=== PATIENT | female | born 1955 | race Caucasian/White ===

== ENCOUNTER 2017-10-10 10:44 | Outpatient (CLI) | payer OTHER ==
[~2017-10-10 10:44] MED LIST: CALC-1051 PO; CLI0.05P TD; DIAZ5DIS4 IV; GABA100C PO; HYDR-565 PO; HYDR40TA PO; MELA3TAB PO; OMEP40CA37 PO; TRAM50TA2 PO; TRYP500C PO
== END 2017-10-10 23:59 | disposition home or self-care (01) ==
LOC: 64 CT 10:44
PROVIDERS: ATTEND Orthopaedic Surgery Orthopaedic Surgery of the Spine
DX: M47.812 Spondylosis without myelopathy or radiculopathy, cervical region (principal); M50.30 Other cervical disc degeneration, unspecified cervical region; M48.02 Spinal stenosis, cervical region
CPT/HCPCS: 72125

== ENCOUNTER → 2017-10-25 | Outpatient (CLI) | payer BC, OTHER ==
[2017-10-25 10:41] LABS: BASOPHILS % (AUTO) 0.6 % (0-1); EOSINOPHILS # (AUTO) 0.2 X10'3 (0-0.9); EOSINOPHILS % (AUTO) 3.7 % (0-6); HEMATOCRIT 40.2 % (35.0-45.0); HEMOGLOBIN 13.6 g/dl (12.0-16.0); LYMPHOCYTES # (AUTO) 3.3 X10'3 (1.1-4.8); LYMPHOCYTES % (AUTO) 49.5 % (21-51); MEAN CORPUSCULAR HEMOGLOBIN 31.5 PG (27.0-31.0); MEAN CORPUSCULAR HGB CONC 33.7 % (33.0-36.5); MEAN CORPUSCULAR VOLUME 93.4 FL (78-98); MEAN PLATELET VOLUME 7.4 FL (7.4-10.4); MONOCYTES # (AUTO) 0.5 X10'3 (0-0.9); MONOCYTES % (AUTO) 8.2 % (2-12); NEUTROPHILS # (AUTO) 2.5 X10'3 (1.8-7.7); PLATELET COUNT 379 X10'3 (140-440); RED BLOOD COUNT 4.31 X10'6 (4.20-5.60); RED CELL DISTRIBUTION WIDTH 14.1 % (11.5-14.5); WHITE BLOOD COUNT 6.6 X10'3 (4.5-11.0)
[2017-10-25 10:48] LABS: ALANINE AMINOTRANSFERASE 28 U/L (12-78); ALBUMIN/GLOBULIN RATIO 1.3 (1.1-1.5); ALKALINE PHOSPHATASE 43 IU/L (46-116); ANION GAP 9 (8-16); ASPARTATE AMINO TRANSFERASE 22 U/L (10-37); BILIRUBIN,TOTAL 0.2 MG/DL (0.1-1.0); BLOOD UREA NITROGEN 13 MG/DL (7-18); BUN/CREATININE RATIO 17.1 (6.6-38.0); CALCIUM 8.6 MG/DL (8.5-10.1); CHLORIDE 98 MMOL/L (99-107); CHOL/HDL RATIO 1.5 (0.00-4.99); CHOLESTEROL 134 MG/DL (0-200); CREATININE 0.76 MG/DL (0.40-0.90); GLUCOSE 83 MG/DL (70-104); HDL CHOLESTEROL 90 MG/DL (35-60); LDL CHOLESTEROL 34 MG/DL (50-100); POTASSIUM 4.2 MMOL/L (3.5-5.1); SODIUM 136 MMOL/L (135-145); TOTAL CARBON DIOXIDE 28.9 MMOL/L (24-32); TOTAL PROTEIN 7.1 G/DL (6.4-8.2); TRIGLYCERIDES 41 MG/DL (20-135); eGFR 77 ML/MIN
== END ==
LOC: LAB 09:24
DX: Z00.01 Encounter for general adult medical examination with abnormal findings (principal); R79.89 Other specified abnormal findings of blood chemistry
CPT/HCPCS: 36415; 80053; 80061; 85025

== ENCOUNTER 2017-11-08 09:30 | Inpatient (IN) | payer OTHER ==
[~2017-11-08] VITALS: Ht 157.5 cm; Wt 60.3 kg
[~2017-11-08 09:30] MED LIST changes: -CALC-1051 PO; -DIAZ5DIS4 IV; -GABA100C PO; -HYDR-565 PO; -HYDR40TA PO; -TRYP500C PO
[2017-11-08 11:08] LABS: BASOPHILS # (AUTO) 0.1 X10'3 (0-0.2); BASOPHILS % (AUTO) 0.6 % (0-1); EOSINOPHILS # (AUTO) 0.2 X10'3 (0-0.9); EOSINOPHILS % (AUTO) 1.9 % (0-6); LYMPHOCYTES # (AUTO) 2.8 X10'3 (1.1-4.8); LYMPHOCYTES % (AUTO) 24.9 % (21-51); MEAN CORPUSCULAR HEMOGLOBIN 31.2 PG (27.0-31.0); MEAN CORPUSCULAR HGB CONC 33.4 % (33.0-36.5); MEAN CORPUSCULAR VOLUME 93.4 FL (78-98); MEAN PLATELET VOLUME 7.2 FL (7.4-10.4); MONOCYTES # (AUTO) 0.9 X10'3 (0-0.9); NEUTROPHILS # (AUTO) 7.4 X10'3 (1.8-7.7); NEUTROPHILS % (AUTO) 64.6 % (42-75); PRE OP HEMATOCRIT 41.3 % (35.0-45.0); PRE OP HEMOGLOBIN 13.8 g/dL (12.0-16.0); PRE OP PLATELET COUNT 411 X10'3 (140-440); RED BLOOD COUNT 4.42 X10'6 (4.20-5.60); RED CELL DISTRIBUTION WIDTH 14.2 % (11.5-14.5)
[2017-11-08 11:09] LABS: CLARITY,URINE CLEAR (Clear); COLOR,URINE YELLOW (Yellow); GLUCOSE, URINE NEGATIVE (Neg); KETONES,URINE NEGATIVE (Neg); LEUKOCYTE ESTERASE ,URINE NEGATIVE (Neg); NITRITES, URINE NEGATIVE (Neg); OCCULT BLOOD,URINE TRACE-INTACT (Neg); PROTEIN,URINE NEGATIVE (Neg); UROBILINOGEN,URINE 0.2 E.U/dL (0.2-1.0)
[2017-11-08 11:13] LABS: UA COLLECTION TYPE CLN CATCH MIDSTREAM
[2017-11-08 11:15] LABS: BACTERIA,URINE FEW /HPF (Neg); RBC,URINE NONE SEEN /HPF (0-2); WBC,URINE NONE SEEN /HPF (0-4)
[2017-11-08 11:16] LABS: MUCUS STRANDS FEW /LPF (Neg); SQUAMOUS EPITHELIAL CELL,UR FEW /LPF (FEW)
[2017-11-08 11:19] LABS: PRE OP INR 0.9 INR; PRE OP PROTIME 9.6 SECONDS (9.0-12.0)
[2017-11-08 11:23] LABS: ALBUMIN 3.8 G/DL (3.4-5.0); ALKALINE PHOSPHATASE 77 IU/L (46-116); BLOOD UREA NITROGEN 10 MG/DL (7-18); BUN/CREATININE RATIO 13.9 (6.6-38.0); CALCIUM 9.3 MG/DL (8.5-10.1); CHLORIDE 96 MMOL/L (99-107); CREATININE 0.72 MG/DL (0.40-0.90); PRE OP ANION GAP 9 (8-16); PRE OP AST 67 U/L (10-37); PRE OP BILIRUB, TOTAL 0.2 MG/DL (0.0-1.0); PRE OP GLUCOSE 103 MG/DL (70-104); PRE OP POTASSIUM 3.9 MMOL/L (3.4-5.1); PRE OP SODIUM 134 MMOL/L (135-145); TOTAL CARBON DIOXIDE 28.7 MMOL/L (24-32); TOTAL PROTEIN 7.8 G/DL (6.4-8.2); eGFR 82 ML/MIN
[2017-11-08 11:26] LABS: PRE OP ALT 106 U/L (30-65)
[2017-11-08] MEDS ORDERED: ACET-812 PO (16:35)
[2017-11-08] MEDS ORDERED: LORA10TA65 PO (16:37)
[2017-11-08] MEDS ORDERED: SERT50TA PO (16:37)
[2017-11-15] VITALS (17 sets, daily range): BP systolic 120–148; BP diastolic 42–105
[2017-11-15] MEDS ORDERED: ringers solution, lacted 1,000 ML IV SCH (05:00)
[2017-11-15] MEDS ORDERED: Cefazolin 2GM/100ML NS IVPB IV ONE (05:30)
[2017-11-15] MEDS ORDERED: VANCOMYCIN INJ 1000 MG in NORMAL SALINE 250ml IV.SOLN IV ONE (05:30)
[2017-11-15] MEDS ORDERED: famotidine 20mg tablet PO ONE (05:30)
[2017-11-15] MEDS ORDERED: ceFAZolin 1000mg inj ONE (09:26)
[2017-11-15] MEDS ORDERED: methylene blue (5mg/ml) 50mg/10ml ampul IV ONE (09:26)
[2017-11-15] MEDS ORDERED: gelatin sponge, absorbable (Gelfoam 100) sponge TP ONE (09:26)
[2017-11-15] MEDS ORDERED: LIDOcaine 1% (10mg/ml) 2ml vial ONE (09:52)
[2017-11-15] MEDS ORDERED: meperidine/PF 25mg/ml syringe IV ONE (10:10)
[2017-11-15] MEDS ORDERED: MIDAZolam 5mg/5ml vial ONE (10:13)
[2017-11-15] MEDS ORDERED: fentaNYL /PF 50mcg/ml 5ml ampule ONE (10:14)
[2017-11-15] MEDS ORDERED: sevoflurane 250ml liquid IH ONE (10:35)
[2017-11-15] MEDS ORDERED: ringers solution, lacted 1,000 ML IV ONE (11:12)
[2017-11-15] MEDS ORDERED: meperidine/PF 25mg/ml syringe IV PRN ×2 (11:15)
[2017-11-15] MEDS ORDERED: labetalol 20mg/4ml (5mg/ml) syringe IV PRN (11:15)
[2017-11-15] MEDS ORDERED: morphine 4 MG/ML inj SYRINge IV PRN ×2 (11:15)
[2017-11-15] MEDS ORDERED: hydrALAZINE 20mg/ml inj. IV PRN (11:15)
[2017-11-15] MEDS ORDERED: ondansetron/PF 4mg/2ml inj IV PRN (11:15)
[2017-11-15] MEDS ORDERED: propofol inj 20 ML IV ONE ×4 (11:22)
[2017-11-15] MEDS ORDERED: metoprolol tartrate 1mg/ml inj IV ONE (11:23)
[2017-11-15] MEDS ORDERED: rocuronium 10mg/ml inj IV ONE (11:23)
[2017-11-15] MEDS ORDERED: dexamethasone sod phosphate 4mg/ml inj. ONE (11:23)
[2017-11-15] MEDS ORDERED: LIDOcaine 1%/PF (10mg/ml) 5ml vial ONE (11:23)
[2017-11-15] MEDS ORDERED: ondansetron/PF 4mg/2ml inj ONE (11:23)
[2017-11-15] MEDS ORDERED: meperidine/PF 50mg/ml syringe ONE (13:25)
[2017-11-15] MEDS ORDERED: temazepam 15mg capsule PO PRN (14:05)
[2017-11-15] MEDS ORDERED: bisacodyl 10mg suppository rectal RC PRN (14:05)
[2017-11-15] MEDS ORDERED: acetaminophen 325mg tablet PO PRN (14:05)
[2017-11-15] MEDS ORDERED: naloxone 0.4 mg/ml inj IV PRN (14:05)
[2017-11-15] MEDS ORDERED: diphenhydrAMINE 50 mg/ml inj IV PRN (14:05)
[2017-11-15] MEDS ORDERED: HYDROcodone/acetaminophen 10/325mg tab PO PRN (14:05)
[2017-11-15] MEDS ORDERED: mag hydrox/Alum hydrox/simeth 30ml oral suspension PO PRN (14:05)
[2017-11-15] MEDS ORDERED: magnesium hydroxide 30ml (MOM) UD suspension PO PRN (14:05)
[2017-11-15] MEDS ORDERED: CADD PCA waste documentation MC PRN (14:05)
[2017-11-15] MEDS: meperidine/PF 25mg/ml syringe IV PRN ×2 (14:12→14:33)
[2017-11-15] MEDS: HYDROmorphone/NS 1 mg/ml CADD 50 ML IV SCH ×6 (14:54→23:00)
[2017-11-15] MEDS: normal saline 1000ml 1,000 ML IV SCH (15:54)
[2017-11-15] MEDS: ceFAZolin 1GM/D5W- ADD-VANTAGE 50 ML IV SCH (15:54)
[2017-11-15] MEDS: vancomycin/NS 1 GM ADD-VANTAGE 250 ML IV SCH (21:04)
[2017-11-16] MEDS: ceFAZolin 1GM/D5W- ADD-VANTAGE 50 ML IV SCH (00:24)
[2017-11-16] MEDS: HYDROmorphone/NS 1 mg/ml CADD 50 ML IV SCH ×7 (01:00→13:00)
[2017-11-16] MEDS: ondansetron/PF 4mg/2ml inj IV PRN ×2 (01:58→09:15)
[2017-11-16 02:00] VITALS: BP 144/61
[2017-11-16] MEDS ORDERED: HYDROmorphone/NS 1 mg/ml CADD 50 ML IV SCH (02:00)
[2017-11-16] MEDS: normal saline 1000ml 1,000 ML IV SCH ×2 (04:40→14:48)
[2017-11-16 05:00] VITALS: BP 136/68
[2017-11-16] MEDS: vancomycin/NS 1 GM ADD-VANTAGE 250 ML IV SCH (07:56)
[2017-11-16] MEDS ORDERED: HYDROcodone/acetaminophen 10/325mg tab PO PRN ×2 (09:15)
[2017-11-16] MEDS: HYDROcodone/acetaminophen 10/325mg tab PO PRN ×4 (09:27→20:52)
[2017-11-16 10:00] VITALS: BP 138/72
[2017-11-16 17:00] VITALS: BP 145/65
[2017-11-16 18:00] VITALS: BP 145/65
[2017-11-16] MEDS ORDERED: loratadine 10mg tablet PO SCH (21:00)
[2017-11-16] MEDS ORDERED: sertraline 50mg tablet PO SCH (21:00)
[2017-11-16 22:00] VITALS: BP 140/70
[2017-11-17] MEDS: HYDROcodone/acetaminophen 10/325mg tab PO PRN ×4 (00:55→12:43)
[2017-11-17] MEDS: normal saline 1000ml 1,000 ML IV SCH (05:16)
[2017-11-17 06:00] VITALS: BP 143/84
[2017-11-17] MEDS ORDERED: pantoprazole 40mg Tablet.DR PO SCH (07:30)
[2017-11-17 10:00] VITALS: BP 134/78
== END 2017-11-17 14:00 | disposition home or self-care (01) | DRG 473 ==
LOC: EDSTATUS 09:30 → PAS IN 11-15 08:55 → EDSTATUS 11-15 11:45 → ORTHO 4S 11-15 15:26
PROVIDERS: ADMIT Orthopaedic Surgery Orthopaedic Surgery of the Spine; ATTEND Orthopaedic Surgery Orthopaedic Surgery of the Spine
PROC: 0RB30ZZ Excision of Cervical Vertebral Disc, Open Approach (ICD-10-PCS; 2017-11-15)
PROC: 0RG20A0 Fusion of 2 or more Cervical Vertebral Joints with Interbody Fusion Device, Anterior Approach, Anterior Column, Open Approach (ICD-10-PCS; principal; 2017-11-15 10:35)
DX: M43.12 Spondylolisthesis, cervical region (principal); M48.02 Spinal stenosis, cervical region; M40.00 Postural kyphosis, site unspecified; M40.202 Unspecified kyphosis, cervical region; Z90.710 Acquired absence of both cervix and uterus; Z79.899 Other long term (current) drug therapy
CPT/HCPCS: 36415; 71046; 72040; 76001; 80053; 81001; 85025; 85610; 85730; 86885; 86900; 86901; 87070; 97116; 97161; A6257; A6449; J0690; J1100; J1170; J2001; J2175; J2250; J2405; J2704; J3010; J3370; J3490; J7030; J7120

== ENCOUNTER 2017-11-26 09:20 | Outpatient (CLI) | payer OTHER ==
[~2017-11-26 09:20] MED LIST changes: +ACET-812 PO; +LORA10TA65 PO; +SERT50TA PO
== END 2017-11-26 23:59 | disposition home or self-care (01) ==
LOC: LAB 09:20
PROVIDERS: ATTEND Orthopaedic Surgery Orthopaedic Surgery of the Spine
DX: M48.02 Spinal stenosis, cervical region (principal); Z87.891 Personal history of nicotine dependence
CPT/HCPCS: 72040

== ENCOUNTER 2017-12-23 10:49 | Outpatient (CLI) | payer OTHER | END 2017-12-23 23:59 | disposition home or self-care (01) | LOC: RAD 10:49 | PROVIDERS: ATTEND Orthopaedic Surgery Orthopaedic Surgery of the Spine | DX: M47.812 Spondylosis without myelopathy or radiculopathy, cervical region (principal); M50.30 Other cervical disc degeneration, unspecified cervical region; M48.02 Spinal stenosis, cervical region; Z87.891 Personal history of nicotine dependence; Z98.890 Other specified postprocedural states | CPT/HCPCS: 72040 ==

== ENCOUNTER 2018-02-04 12:04 | Outpatient (CLI) | payer OTHER | END 2018-02-04 23:59 | disposition home or self-care (01) | LOC: LAB 12:04 → RAD 23:59 | PROVIDERS: ATTEND Orthopaedic Surgery Orthopaedic Surgery of the Spine | DX: M50.30 Other cervical disc degeneration, unspecified cervical region (principal); M48.02 Spinal stenosis, cervical region | CPT/HCPCS: 72040 ==

== ENCOUNTER 2018-05-08 10:26 | Outpatient (CLI) | payer OTHER | END 2018-05-08 23:59 | disposition home or self-care (01) | LOC: RAD 10:26 | PROVIDERS: ATTEND Orthopaedic Surgery Orthopaedic Surgery of the Spine | DX: M50.323 Other cervical disc degeneration at C6-C7 level (principal); Z90.710 Acquired absence of both cervix and uterus; Z88.6 Allergy status to analgesic agent | CPT/HCPCS: 72040 ==

== ENCOUNTER 2018-05-19 09:48 | Outpatient (CLI) | payer OTHER | END 2018-05-19 23:59 | disposition home or self-care (01) | LOC: RAD 09:48 | PROVIDERS: ATTEND Orthopaedic Surgery Orthopaedic Surgery of the Spine | DX: M43.26 Fusion of spine, lumbar region (principal); M48.07 Spinal stenosis, lumbosacral region; Z88.6 Allergy status to analgesic agent | CPT/HCPCS: 72100; 72148 ==

== ENCOUNTER 2018-09-22 11:01 | Outpatient (CLI) | payer OTHER ==
[2018-09-22 11:44] LABS: BASOPHILS % (AUTO) 0.6 % (0-1); EOSINOPHILS # (AUTO) 0.1 X10'3 (0-0.9); EOSINOPHILS % (AUTO) 0.9 % (0-6); HEMATOCRIT 42.6 % (35.0-45.0); HEMOGLOBIN 14.1 g/dl (12.0-16.0); LYMPHOCYTES # (AUTO) 1.9 X10'3 (1.1-4.8); LYMPHOCYTES % (AUTO) 22.4 % (21-51); MEAN CORPUSCULAR HEMOGLOBIN 30.9 PG (27.0-31.0); MEAN CORPUSCULAR HGB CONC 33.2 g/dL (33.0-36.5); MEAN PLATELET VOLUME 7.1 FL (7.4-10.4); MONOCYTES # (AUTO) 0.5 X10'3 (0-0.9); MONOCYTES % (AUTO) 5.6 % (2-12); NEUTROPHILS # (AUTO) 5.9 X10'3 (1.8-7.7); NEUTROPHILS % (AUTO) 70.5 % (42-75); PLATELET COUNT 384 X10'3 (140-440); RED BLOOD COUNT 4.58 X10'6 (4.20-5.60); RED CELL DISTRIBUTION WIDTH 13.9 % (11.5-14.5); WHITE BLOOD COUNT 8.3 X10'3 (4.5-11.0)
== END 2018-09-22 23:59 | disposition home or self-care (01) ==
LOC: RAD 11:01
DX: I10 Essential (primary) hypertension (principal); G00.9 Bacterial meningitis, unspecified; M41.84 Other forms of scoliosis, thoracic region; Z98.890 Other specified postprocedural states; Z88.8 Allergy status to other drugs, medicaments and biological substances
CPT/HCPCS: 36415; 72040; 85025

== ENCOUNTER 2020-01-06 08:56 | Outpatient (CLI) | payer BC ==
[~2020-01-06 08:56] MED LIST changes: -MELA3TAB PO; +MELA3TAB39 PO; +OMEP40CA13 PO; -OMEP40CA37 PO
[2020-01-06 09:29] LABS: BASOPHILS # (AUTO) 0.1 X10'3 (0-0.2); BASOPHILS % (AUTO) 1.1 % (0-1); EOSINOPHILS # (AUTO) 0.2 X10'3 (0-0.9); EOSINOPHILS % (AUTO) 3.1 % (0-6); HEMATOCRIT 40.8 % (35.0-45.0); HEMOGLOBIN 13.4 g/dl (12.0-16.0); LYMPHOCYTES # (AUTO) 2.5 X10'3 (1.1-4.8); LYMPHOCYTES % (AUTO) 41.6 % (21-51); MEAN CORPUSCULAR HEMOGLOBIN 29.9 PG (27.0-31.0); MEAN CORPUSCULAR HGB CONC 32.8 g/dL (33.0-36.5); MEAN CORPUSCULAR VOLUME 91.1 FL (78-98); MEAN PLATELET VOLUME 6.7 FL (7.4-10.4); MONOCYTES # (AUTO) 0.4 X10'3 (0-0.9); MONOCYTES % (AUTO) 7.5 % (2-12); NEUTROPHILS # (AUTO) 2.8 X10'3 (1.8-7.7); NEUTROPHILS % (AUTO) 46.7 % (42-75); PLATELET COUNT 426 X10'3 (140-440); RED BLOOD COUNT 4.48 X10'6 (4.20-5.60); RED CELL DISTRIBUTION WIDTH 13.4 % (11.5-14.5); WHITE BLOOD COUNT 5.9 X10'3 (4.5-11.0)
[2020-01-06 09:42] LABS: ALANINE AMINOTRANSFERASE 37 U/L (12-78); ALBUMIN 4.2 G/DL (3.4-5.0); ALBUMIN/GLOBULIN RATIO 1.3 (1.1-1.5); ALKALINE PHOSPHATASE 35 IU/L (46-116); ANION GAP 6 (8-16); ASPARTATE AMINO TRANSFERASE 37 U/L (10-37); BILIRUBIN,TOTAL 0.3 MG/DL (0.1-1.0); BLOOD UREA NITROGEN 18 MG/DL (7-18); BUN/CREATININE RATIO 20.5 (6.6-38.0); CALCIUM 8.6 MG/DL (8.5-10.1); CHLORIDE 103 MMOL/L (99-107); CHOL/HDL RATIO 1.5 (0.00-4.99); CHOLESTEROL 134 MG/DL (0-200); CREATININE 0.88 MG/DL (0.40-0.90); GLUCOSE 96 MG/DL (70-104); HDL CHOLESTEROL 90 MG/DL (35-60); LDL CHOLESTEROL 38 MG/DL (50-100); POTASSIUM 4.2 MMOL/L (3.5-5.1); SODIUM 141 MMOL/L (135-145); TOTAL CARBON DIOXIDE 32.3 MMOL/L (24-32); TOTAL PROTEIN 7.5 G/DL (6.4-8.2); TRIGLYCERIDES 57 MG/DL (20-135); eGFR 64 ML/MIN
== END 2020-01-06 23:59 | disposition home or self-care (01) ==
LOC: LAB 08:56
DX: Z00.00 Encounter for general adult medical examination without abnormal findings (principal)
CPT/HCPCS: 36415; 80053; 80061; 85025

== ENCOUNTER 2020-06-21 08:44 | Outpatient (CLI) | payer BC | END 2020-06-21 23:59 | disposition home or self-care (01) | LOC: RAD 08:44 | PROVIDERS: ATTEND Family Medicine | DX: M54.40 Lumbago with sciatica, unspecified side (principal) | CPT/HCPCS: 72110 ==

== ENCOUNTER 2020-06-28 11:37 | Outpatient (CLI) | payer BC | END 2020-06-28 23:59 | disposition home or self-care (01) | LOC: RAD 11:37 | PROVIDERS: ATTEND Internal Medicine Interventional Cardiology | DX: M51.17 Intervertebral disc disorders with radiculopathy, lumbosacral region (principal); M48.061 Spinal stenosis, lumbar region without neurogenic claudication; M43.26 Fusion of spine, lumbar region | CPT/HCPCS: 72148 ==

== ENCOUNTER 2020-11-19 07:48 | Day surgery (SDC) | payer BC ==
[~2020-11-19] VITALS: Ht 157.5 cm; Wt 60.5 kg
[2020-11-19 07:55] VITALS: BP 139/92
[2020-11-19] MEDS ORDERED: fentaNYL/PF 50MCG/1 ML 2ML syringe ONE ×2 (08:00→09:01)
[2020-11-19] MEDS ORDERED: MIDAZolam 1 MG/ML 5ML VIAL ONE (08:01)
[2020-11-19] MEDS ORDERED: ASPI-128 (08:21)
[2020-11-19] MEDS ORDERED: NAPR220T67 PO (08:21)
[2020-11-19] MEDS ORDERED: [UNRECOGNIZED DRUG - OTHER] (08:22)
[2020-11-19] MEDS ORDERED: [UNRECOGNIZED DRUG - OTHER] (08:23)
[2020-11-19 09:31] VITALS: BP 109/68
[2020-11-19 09:41] VITALS: BP 135/62
[2020-11-19 09:51] VITALS: BP 108/57
== END 2020-11-19 10:06 | disposition home or self-care (01) ==
LOC: GI LAB 07:48
PROVIDERS: ATTEND Internal Medicine Gastroenterology
DX: Z12.11 Encounter for screening for malignant neoplasm of colon (principal)
CPT/HCPCS: 45378; J2250; J3010; J7040; 99152; 99153; A4620

== ENCOUNTER 2022-06-06 14:51 | Outpatient (CLI) | payer BC ==
[~2022-06-06 14:51] MED LIST changes: -ACET-812 PO; +ASPI-128; -LORA10TA65 PO; -MELA3TAB39 PO; +NAPR220T67 PO; -OMEP40CA13 PO; +[UNRECOGNIZED DRUG - OTHER]; +[UNRECOGNIZED DRUG - OTHER]
== END 2022-06-06 23:59 | disposition home or self-care (01) ==
LOC: RAD 14:51
PROVIDERS: ATTEND Podiatrist Foot & Ankle Surgery
DX: M19.072 Primary osteoarthritis, left ankle and foot (principal); M25.372 Other instability, left ankle; M21.42 Flat foot [pes planus] (acquired), left foot; M79.672 Pain in left foot
CPT/HCPCS: 73721

== ENCOUNTER 2022-06-13 14:49 | Outpatient (CLI) | payer BC | END 2022-06-13 23:59 | disposition home or self-care (01) | LOC: RAD 14:49 | PROVIDERS: ATTEND Podiatrist Foot & Ankle Surgery | DX: M65.872 Other synovitis and tenosynovitis, left ankle and foot (principal); M77.52 Other enthesopathy of left foot and ankle; M19.072 Primary osteoarthritis, left ankle and foot; M25.372 Other instability, left ankle; M21.42 Flat foot [pes planus] (acquired), left foot; M79.672 Pain in left foot | CPT/HCPCS: 73718 ==

== ENCOUNTER 2024-03-05 10:44 | Outpatient (CLI) | payer MEDICARE | END 2024-03-05 23:59 | disposition home or self-care (01) | LOC: MRI 10:44 | PROVIDERS: ATTEND Physician Assistant | DX: M50.11 Cervical disc disorder with radiculopathy, high cervical region (principal); M47.22 Other spondylosis with radiculopathy, cervical region; M48.03 Spinal stenosis, cervicothoracic region; Z98.1 Arthrodesis status | CPT/HCPCS: 72052; 72141 ==